=== PATIENT | female | born 1960 ===

== ENCOUNTER 2019-12-02 10:50 | Emergency (ER) | payer SELFPAY ==
[~2019-12-02] VITALS: Ht 152.4 cm; Wt 75.0 kg
[2019-12-02 11:01] VITALS: BP 134/70
--- NOTE | 2019-12-02 14:35 | NUR ---
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
--- NOTE | 2019-12-02 14:46 | NUR ---
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
--- NOTE | 2019-12-02 15:12 | NUR ---
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
== END 2019-12-02 15:20 | disposition left against medical advice (07) ==
LOC: ED 15:09
DX: R09.81 Nasal congestion (principal); Z53.21 Procedure and treatment not carried out due to patient leaving prior to being seen by health care provider